=== PATIENT | male | born 1965 | race Caucasian/White ===

== ENCOUNTER 2021-09-01 11:22 | Outpatient (REF) | payer OTHER, SELFPAY ==
[2021-09-01 12:00] LABS: COVID-19 Test Negative (Negative)
[2021-09-01 12:27] LABS: Rheumatoid Factor < 15.0 IU/mL (<15.0)
[2021-09-01 12:36] LABS: Erythrocyte Sedimentation Rate 8 MM/HR (0-15)
[2021-09-02 08:30] LABS: Syphilis Screen Nonreactive (Nonreactive)
[2021-09-02 08:46] LABS: Lyme Abs Screen <0.90 index
[2021-09-02 13:36] LABS: Anti Nuclear Antibody Screen NEGATIVE (NEGATIVE)
== END 2021-09-01 11:23 | disposition home or self-care (01) ==
LOC: HO.LAB 11:22
PROVIDERS: Visit Provider Psychiatry & Neurology Neurology
DX: Z20.822 Contact with and (suspected) exposure to COVID-19 (principal); G43.909 Migraine, unspecified, not intractable, without status migrainosus
CPT/HCPCS: 85652; 86038; 86039; 86431; 86617; 86618; 86780; 87635